=== PATIENT | male | born 1995 | race Two or more races ===

== ENCOUNTER 2022-03-02 17:02 | Emergency (ER) | payer OTHER, SELFPAY ==
[2022-03-02 17:10] VITALS: BP 104/77; PULSE 134; RESP 20; O2SAT 100
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
[2022-03-02] MEDS: LORazepam (*CRX) 1 MG TABLET PO (17:28)
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
[2022-03-02 17:50] VITALS: BP 143/77; PULSE 125; RESP 17; O2SAT 100
[2022-03-02] MEDS: TETANUS,DIPHTHERIA,AC PERTUSSIS ADULT (0.5 ML) BOOSTRIX IM (18:21)
[2022-03-02] MEDS: CEPHALEXIN 500 MG CAPSULE PO (18:21)
--- NOTE | 2022-03-02 18:26 | PC.NURSE ---
patient reports that he feels safe to return home. patient's friends at bedside at this time to take patient home.
[2022-03-02 18:46] VITALS: BP 115/76; PULSE 130; RESP 20; O2SAT 100
== END 2022-03-02 18:57 | disposition home or self-care (01) ==
LOC: ANHED 18:31
PROVIDERS: Emergency Provider Emergency Medicine
DX: S31.31XA Laceration without foreign body of scrotum and testes, initial encounter (principal); Z23 Encounter for immunization; Y04.0XXA Assault by unarmed brawl or fight, initial encounter
CPT/HCPCS: 12004; 90471; 90715; 99283; A9270

== ENCOUNTER 2022-03-03 12:22 | Emergency (ER) | payer OTHER, SELFPAY ==
[2022-03-03 12:42] VITALS: BP 128/79; PULSE 99; RESP 16; TEMP 37; O2SAT 99
--- NOTE | 2022-03-03 14:05 | ED.WOUNDLAC ---
HPI - Wound/Laceration General Chief Complaint: Wound/Laceration Stated Complaint: wound recheck Time Seen by Provider: 03/03/22 13:23 Source: patient, RN notes reviewed and old records reviewed Mode of arrival: ambulatory Limitations: no limitations History of Present Illness HPI narrative: This is a 26 year old male who presents for wound check of a scrotal laceration. He suffered a laceration to his right scrotum yesterday. He was evaluated in ER and it was repaired. Patient states he called urologist number that was given, but it was in [place]. He states he is unable to get an appointment until next monday. He had a few questions so he came to ER. He reports his bandage is coming off so he wanted to know what to do about this. He also wants to know if he came take a shower. He has mild body aches from yesterday. he denies redness or bleeding. He denies testicular pain or swelling Related Data Allergies Allergy/AdvReac Type Severity Reaction Status Date / Time No Known Allergies Allergy Verified 03/02/22 17:23 Review of Systems Review of Systems: All systems reviewed & are unremarkable except as noted in HPI and below Constitutional: Constitutional: Denies chills and Denies fatigue Gastrointestinal: Gastrointestinal: Denies abdominal pain, Denies nausea and Denies vomiting Genitourinary: Genitourinary: Denies hematuria PMFSH Past Medical History Medical History (Updated 03/03/22 @ 14:11 by Raven Owusu MD) No significant medical problems Surgical History Surgical History (Updated 03/03/22 @ 14:09 by Raven Owusu MD) No pertinent past surgical history Social History Social History (Updated 03/03/22 @ 14:09 by Raven Owusu MD) Smoking status: Never smoker Exam Const: General: alert Nutritional Appearance: well nourished Orientation/consciousness: patient oriented x3 HENMT: Mouth: Yes Normal oral and palatal mucosa present, Yes lip normal and Yes moist mucous membranes Throat: posterior oropharynx normal Eyes: EOM: EOMs intact bilaterally Chest: Chest palpation & inspection: normal inspection of the chest Resp: Effort & Inspection: normal respiratory effort Auscultation: clear to auscultation bilaterally Cardio: Rate: regular rate Rhythm: regular rhythm Heart sounds: no murmurs GI: GI Palp: Yes Soft to palpation, No Tenderness to palpation present (GI) and No Guarding due to palpation present (GI) Auscultation: normal bowel sounds Other: right scrotum wound is intact, no bleeding, no significant swelling Skin: General skin exam: normal color Neuro: General: patient oriented x3, moves all extremities and CN's II-XI intact bilaterally Psych: Mental Status: mental status grossly normal Affect: normal affect Attitude: cooperative Course Reevaluation(s) Reevaluation #1: Patient's wound appears to be intact. I Discussed wound care and follow up . Date: 03/03/22 Time: 14:13 Vital Signs Vital signs: Vital Signs Temperature 98.6 F 03/03/22 12:42 Pulse Rate 99 03/03/22 12:42 Respiratory Rate 16 03/03/22 12:42 Blood Pressure 128/79 03/03/22 12:42 Pulse Oximetry 99 03/03/22 12:42 Temperature 98.6 F 03/03/22 12:42 Pulse Rate 99 03/03/22 12:42 Respiratory Rate 16 03/03/22 12:42 Blood Pressure 128/79 03/03/22 12:42 Pulse Oximetry 99 03/03/22 12:42 Discharge Plan Discharge Clinical Impression: Encounter for re-check of laceration wound Patient Disposition: Home, Self-Care Condition: Stable Instructions: Antibiotic Form, Care For Your Stitches (ED), Acute Wounds (ED) Additional Instructions: Apply antibiotic ointment as prescribed. Call urologist to make appointment for wound check, If you develop fever, swelling, purulent drainage or redness return to ER. Prescriptions: New bacitracin 500 unit/gram ointment 1 applic topical TID Qty: 28 0RF No Action cephalexin 250 mg capsule 250 mg PO Q6H 7
== END 2022-03-03 14:35 | disposition home or self-care (01) ==
PROVIDERS: Emergency Provider General Practice
DX: S31.31XD Laceration without foreign body of scrotum and testes, subsequent encounter (principal); X58.XXXD Exposure to other specified factors, subsequent encounter
CPT/HCPCS: 99283